=== PATIENT | male | born 1985 | race Caucasian/White ===

== ENCOUNTER 2016-09-21 12:40 | Emergency (ER) | payer SELFPAY ==
[2016-09-21 12:54] VITALS: BP 123/69; PULSE 62; RESP 18; TEMP 98.8; O2SAT 100
--- NOTE | 2016-09-21 15:12 | ED PDOC ---
HPI: Chest Pain Time Seen by Provider: 09/21/16 14:20 Chief Complaint (Nursing): Chest Pain Chief Complaint (Provider): Chest pain History Per: Patient History/Exam Limitations: no limitations Onset/Duration Of Symptoms: Intermittent Episodes Current Symptoms Are (Timing): Still Present Severity: Moderate Pain Scale Rating Of: 6 Quality: Sharp Associated Symptoms: denies: Nausea, Dyspnea, Diaphoresis, Syncope Modifying Factors: None Exacerbating Factors: None Alleviating Factors: None Additional Complaint(s): 31 yo male present to the ER c/o chest pain for 3 mos. Associated with numbness and tingling on L arm, no constant, getting worse, no associated with any particular event, also headache and lightheadness. Denies any shortness of breath, vomiting, chills, fever. Also describes a rash on groin area white, dry, with a healed lesion on shaft of penis,less than 3 mm, painless. Denies discharge, pain, dysuria, pruritus. Has a history of unprotected sexual relation days ago. Pt has been seen for chest pain 3-4 times before in the last year and half with negative prior ECG and negatives CXR, at this time no taking any medications. Pt appears anxious, focus on risk of STD. Otherwise the pt denies abdominal pain , diaphoresis, vision changes Past Medical History Reviewed: Historical Data, Nursing Documentation, Vital Signs Vital Signs: Last Vital Signs Temp 98.8 F 09/21/16 12:51 Pulse 62 09/21/16 12:51 Resp 18 09/21/16 12:51 BP 123/69 09/21/16 12:51 Pulse Ox 100 09/21/16 12:51 - Medical History PMH: Asthma, Back Problems (scoliosis), Pneumonia - Family History Family History: States: Unknown Family Hx - Immunization History Hx Tetanus Toxoid Vaccination: No Hx Influenza Vaccination: No Hx Pneumococcal Vaccination: No - Home Medications Home Medications: Ambulatory Orders Medication Instructions Recorded Ibuprofen 600 mg PO Q8 #30 tab 03/28/15 Albuterol HFA [Ventolin HFA 90 1 puff IH Q4 #1 puff 05/29/15 mcg/actuation (8 g)] Benzonatate [Tessalon Perles] 100 mg PO TID #30 sgl 05/29/15 Docusate [Colace] 100 mg PO TID #60 cap 05/29/15 Hydrocortisone 2.5% (Rectal) 30 applic [place] BID #1 tube 05/29/15 [Anusol-HC] Cyclobenzaprine [Cyclobenzaprine 10 mg PO BID #15 tab 05/01/16 HCl] Ibuprofen [Motrin Tab] 600 mg PO Q6 #30 tab 05/01/16 - Allergies Allergies/Adverse Reactions: Allergies Allergy/AdvReac Type Severity Reaction Status Date / Time turkey Allergy Intermediate ANGIOEDEMA Uncoded 01/29/15 23:15 GILL Risk Score for UA/NSTEMI - GILL Risk Score Age > 64: NO 3 or more CAD Risk Factors: NO Known CAD (Stenosis greater than 50%): NO Aspirin use in past 7 days: NO Severe Angina: NO EKG ST changes greater than 0.5mm: NO Positive Cardiac Marker: NO GILL Score: 0 Risk %: 5% Curb-65 Severity Score - CURB-65 Severity Score Confusion: No Bun >19mg/dl (>7mmol/L): No Respiratory Rate greater than/equal to 30: No Systolic BP <90 or Diastolic BP less than/equal 60mmHg: No Age >64: No Curb-65 Score: 0 Percentage 30-day mortality: 0.6% Wells Criteria for PE - Wells Criteria for Pulmonary Embolism Clinical Signs and Symptoms of DVT: No P.E is #1 Diagnosis, or Equally Likely: No Heart Rate >100: No Immobilization at least 3 days;Surgery previous 4 weeks: No Previous, objectively diagnosed PE or DVT: No Hemoptysis: No Malignancy w/treatment within 6 months, or palliative: No Total Score: 0 Review of Systems ROS Statement: Except As Marked, All Systems Reviewed And Found Negative (see HPI) Physical Exam - Reviewed Nursing Documentation Reviewed: Yes Vital Signs Reviewed: Yes - Physical Exam Appears: Positive for: Well, No Acute Distress Head Exam: Positive for: ATRAUMATIC, NORMAL INSPECTION Skin: Positive for: Normal Color Eye Exam: Positive for: Normal appearance, EOMI, PERRL Neck: Positive for: Normal Cardiovascular/Chest: Positive for: Regular Rate, Rhythm, Chest Non Tender. Negative for: Edema, Gallop, Murmur Respiratory: Positive for: Normal Breath Sounds. Negative for: Wheezing, Respiratory Distress Gastrointestinal/Abdominal: Positive for: Normal Exam Male Genital Exam: Positive for: normal genitalia, other (healed lesion less 3mm on shaft of penis painless). Negative for: erythema, urethral discharge Back: Positive for: Normal Inspection Extremity: Positive for: Normal ROM. 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
[2016-09-21] MEDS ORDERED: Potassium Chloride 20 mEq ER Tab PO ONE (19:26)
== END 2016-09-21 14:45 | disposition left against medical advice (07) ==
LOC: H.ER 12:40
DX: R07.89 Other chest pain (principal)

== ENCOUNTER 2016-09-21 15:30 | Emergency (ER) | payer SELFPAY ==
[2016-09-21 15:40] VITALS: TEMP 98; O2SAT 100
--- NOTE | 2016-09-21 17:11 | CARD ---
APPROVED REPORT EKG Measurement Heart [id number] <Conclusion> Normal sinus rhythm with sinus arrhythmia Possible Left atrial enlargement Borderline ECG
[2016-09-21 17:42] LABS: BASO # 0.1 K/uL (0.0-0.2); BASO % 0.8 % (0.0-2.0); EOS % 0.5 % (0.0-4.0); LYMPH # 2.1 K/uL (1.0-4.3); LYMPH % 23.4 % (20.0-40.0); MEAN CELL VOLUME 87.7 fl (80.0-94.0); MEAN CORPUSCULAR HGB CONC 34.2 g/dL (33.0-37.0); MEAN PLATELET VOLUME 8.5 fl (7.2-11.7); MONO # 0.6 K/uL (0.0-0.8); MONO % 6.8 % (0.0-10.0); NEUT # 6.3 K/uL (1.8-7.0); NEUT % 68.5 % (50.0-75.0); NRBC % 0.1 % (0.0-0.0); RBC 5.35 Mil/uL (4.40-5.90); RED CELL DISTRIBUTION WIDTH 13.2 % (11.5-14.5); WHITE BLOOD COUNT 9.2 K/uL (4.8-10.8)
[2016-09-21 18:03] LABS: BLOOD UREA NITROGEN 11 mg/dl (9-20); CALCIUM 9.5 mg/dL (8.4-10.2); GFR AFRICAN-AMERICAN > 60; GFR NON-AFRICAN AMERICAN > 60
[2016-09-21] MEDS ORDERED: Potassium Chloride 20 mEq ER Tab PO ONE (18:49)
--- NOTE | 2016-09-21 18:59 | ED PDOC ---
HPI: Chest Pain Time Seen by Provider: 09/21/16 17:00 Chief Complaint (Nursing): Chest Pain Chief Complaint (Provider): Chest Pain History Per: Patient History/Exam Limitations: no limitations Additional Complaint(s): 31 yo male present to the ER c/o chest pain for 3 mos. Associated with numbness and tingling on L arm, no constant, getting worse, no associated with any particular event, also headache and lightheadness. Denies any shortness of breath, vomiting, chills, fever. Also describes a rash on groin area white, dry, with a healed lesion on shaft of penis,less than 3 mm, painless. Denies discharge, pain, dysuria, pruritus. Has a history of unprotected sexual relation days ago. Pt has been seen for chest pain 3-4 times before in the last year and half with negative prior ECG and negatives CXR, at this time no taking any medications. Pt appears anxious, focus on risk of STD. Otherwise the pt denies abdominal pain , diaphoresis, vision changes Past Medical History Reviewed: Historical Data, Nursing Documentation, Vital Signs Vital Signs: Last Vital Signs Temp 98.0 F 09/21/16 15:37 Pulse 70 09/21/16 19:29 Resp 18 09/21/16 19:29 BP 118/74 09/21/16 19:29 Pulse Ox 100 09/21/16 19:08 - Medical History PMH: Asthma, Back Problems (scoliosis), Pneumonia - Surgical History Other surgeries: HEART SURGERY A CHILD - Family History Family History: States: Unknown Family Hx - Social History Current smoker - smoking cessation education provided: Yes (Current Some Days Smoker) Alcohol: Occasional Drugs: Cannabis - Immunization History Hx Tetanus Toxoid Vaccination: No Hx Influenza Vaccination: No Hx Pneumococcal Vaccination: No - Home Medications Home Medications: Ambulatory Orders Medication Instructions Recorded Ibuprofen 600 mg PO Q8 #30 tab 03/28/15 Albuterol HFA [Ventolin HFA 90 1 puff IH Q4 #1 puff 05/29/15 mcg/actuation (8 g)] Benzonatate [Tessalon Perles] 100 mg PO TID #30 sgl 05/29/15 Docusate [Colace] 100 mg PO TID #60 cap 05/29/15 Hydrocortisone 2.5% (Rectal) 30 applic [place] BID #1 tube 05/29/15 [Anusol-HC] Cyclobenzaprine [Cyclobenzaprine 10 mg PO BID #15 tab 05/01/16 HCl] Ibuprofen [Motrin Tab] 600 mg PO Q6 #30 tab 05/01/16 - Allergies Allergies/Adverse Reactions: Allergies Allergy/AdvReac Type Severity Reaction Status Date / Time turkey Allergy Intermediate ANGIOEDEMA Uncoded 01/29/15 23:15 Review of Systems ROS Statement: Except As Marked, All Systems Reviewed And Found Negative Constitutional: Negative for: Sweats Cardiovascular: Positive for: Chest Pain Gastrointestinal: Negative for: Nausea Genitourinary Male: Positive for: Other (Penile lesions). Negative for: Penile Discharge Neurological: Negative for: Other (Syncope) Physical Exam - Reviewed Nursing Documentation Reviewed: Yes Vital Signs Reviewed: Yes - Physical Exam Appears: Positive for: Non-toxic, No Acute Distress Head Exam: Positive for: ATRAUMATIC, NORMAL INSPECTION, NORMOCEPHALIC Skin: Positive for: Normal Color, Warm, Dry Eye Exam: Positive for: Normal appearance, EOMI, PERRL. Negative for: Conjunctival injection Neck: Positive for: Normal, Supple Cardiovascular/Chest: Positive for: Regular Rate, Rhythm. Negative for: Murmur Respiratory: Positive for: Normal Breath Sounds. Negative for: Accessory Muscle Use, Respiratory Distress Gastrointestinal/Abdominal: Positive for: Normal Exam, Soft. Negative for: Tenderness Male Genital Exam: Positive for: normal genitalia, lesions (Healed lesion less 3mm on shaft of penis painless). Negative for: erythema, urethral discharge Back: Positive for: Normal Inspection. Negative for: L CVA Tenderness, R CVA Tenderness Extremity: Positive for: Normal ROM. 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 Patient returned. Time: 18:49 --Potassium Chloride 20 meq PO Scribe Attestation: Documented by Renate Major, acting as a scribe for Timur Dietz MD. Provider Scribe Attestation: All medical record entries made by the Scribe were at my direction and personally dictated by me. I have reviewed the chart and agree that the record accurately reflects my personal performance of the history, physical exam, medical decision making, and the department course for this patient. I have also personally directed, reviewed, and agree with the discharge instructions and disposition. Disposition - Clinical Impression Clinical Impression: Chest pain, Penile lesion, Hypokalemia - Patient ED Disposition Is Patient to be Admitted: No Counseled Patient/Family Regarding: Studies Performed, Diagnosis, Need For Followup - Disposition Referrals: Delphine Torres MD [Medical Doctor] - Disposition: Routine/Home Disposition Time: 18:45 Condition: STABLE Additional Instructions: Supplement diet today and tomorrow with extra potassium- bananas and orange juice are rich in potassium. See urology for followup on penile lesion. RPR test is pending and will take 2 days to return, you will be called only if test is positive. Instructions: Chest Pain (ED)
[2016-09-21 19:29] VITALS: BP 118/74; PULSE 70; RESP 18
== END 2016-09-21 19:38 | disposition home or self-care (01) ==
LOC: H.ER 15:30
DX: R07.89 Other chest pain (principal)

== ENCOUNTER 2017-06-17 02:47 | Emergency (ER) | payer SELFPAY ==
[2017-06-17 03:18] VITALS: BP 129/85; PULSE 74; RESP 17; TEMP 97.6; O2SAT 99
[2017-06-17] MEDS ORDERED: cefTRIAXone (Rocephin) 250 mg Inj IM ONE (03:46)
--- NOTE | 2017-06-17 03:57 | ED PDOC ---
HPI: Chest Pain Time Seen by Provider: 06/17/17 03:14 Chief Complaint (Nursing): Chest Pain Additional Complaint(s): 31 YO M w/ multiple previous visits of chest pain and STD checkups presents to the ED with multiple vague complaints. He complains of chest pain x 3 weeks. Patient states he is undergoing a lot of stress in his life. Both of his parents have cancer and are very sick. - He also is concerned because he has unprotected sex and his past sexual partner had Gonorrhea and chlamydia and was recently treated for it. He is concerned that he may have contracted that from her . Has not been following up with his PMD and would like to get "worked up for everything. " PMH: Asthma Allergy: NKDA FH: Pancreatic cancer, brain cancer, DM, HTN SH: "Smokes 8-10 blunts a day" Occasional alcohol use - Past Medical History Reviewed: Historical Data, Nursing Documentation, Vital Signs Vital Signs: Last Vital Signs Temp 97.6 F 06/17/17 03:05 Pulse 74 06/17/17 03:05 Resp 17 06/17/17 03:05 BP 129/85 06/17/17 03:05 Pulse Ox 99 06/17/17 04:02 - Medical History PMH: Asthma, Back Problems (scoliosis), Pneumonia - Surgical History Surgical History: No Surg Hx - Family History Family History: States: Diabetes, Other Other Family History: pancreatic cancer and brain tumors - Social History Alcohol: Occasional Drugs: Cannabis - Immunization History Hx Tetanus Toxoid Vaccination: No Hx Influenza Vaccination: No Hx Pneumococcal Vaccination: No - Home Medications Home Medications: Ambulatory Orders Medication Instructions Recorded Ibuprofen 600 mg PO Q8 #30 tab 03/28/15 Albuterol HFA [Ventolin HFA 90 1 puff IH Q4 #1 puff 05/29/15 mcg/actuation (8 g)] Benzonatate [Tessalon Perles] 100 mg PO TID #30 sgl 05/29/15 Docusate [Colace] 100 mg PO TID #60 cap 05/29/15 Hydrocortisone 2.5% (Rectal) 30 applic [place] BID #1 tube 05/29/15 [Anusol-HC] Cyclobenzaprine [Cyclobenzaprine 10 mg PO BID #15 tab 05/01/16 HCl] Ibuprofen [Motrin Tab] 600 mg PO Q6 #30 tab 05/01/16 - Allergies Allergies/Adverse Reactions: Allergies Allergy/AdvReac Type Severity Reaction Status Date / Time turkey Allergy Intermediate ANGIOEDEMA Uncoded 01/29/15 23:15 GILL Risk Score for UA/NSTEMI - GILL Risk Score Age > 64: NO 3 or more CAD Risk Factors: NO Known CAD (Stenosis greater than 50%): NO Aspirin use in past 7 days: NO EKG ST changes greater than 0.5mm: NO GILL Score: 0 Risk %: 5% Wells Criteria for PE - Wells Criteria for Pulmonary Embolism Clinical Signs and Symptoms of DVT: No P.E is #1 Diagnosis, or Equally Likely: No Heart Rate >100: No Immobilization at least 3 days;Surgery previous 4 weeks: No Previous, objectively diagnosed PE or DVT: No Hemoptysis: No Malignancy w/treatment within 6 months, or palliative: No Total Score: 0 Review of Systems ROS Statement: Except As Marked, All Systems Reviewed And Found Negative Physical Exam - Reviewed Vital Signs Reviewed: Yes - Physical Exam Appears: Positive for: No Acute Distress (Anxious) Head Exam: Positive for: NORMAL INSPECTION Skin: Positive for: Normal Color Neck: Positive for: Normal Cardiovascular/Chest: Positive for: Regular Rate, Rhythm Respiratory: Positive for: Normal Breath Sounds. Negative for: Crackles, Rales , Wheezing Gastrointestinal/Abdominal: Positive for: Normal Exam, Soft Back: Negative for: L CVA Tenderness, R CVA Tenderness Neurologic/Psych: Positive for: Alert, waste elimination II-XII, Oriented, Motor/Sensory Deficits - ECG ECG: Positive for: Interpreted By Me, Viewed By Me ECG Rhythm: Positive for: Normal QRS, Normal ST Segment, Sinus Rhythm O2 Sat by Pulse Oximetry: 99 Medical Decision Making Medical Decision Making: EKG: No ischemic changes noted. Patient has had multiple visits for ruling out ACS and have been negative. Currently symptoms have subsided. PAtient is concerned with exposure to gonorrhea and chlamydia - 1000mg of Azithromycin and 250mg of Ceftriaxone Disposition - Clinical Impression Clinical Impression: Chest pain, Gonorrhea contact - Disposition Referrals: [facility] [Outside] Disposition: Routine/Home Disposition Time: 04:57 Condition: GOOD Instructions: Chest Pain, Chest Pain That Is Not Caused by the Heart (DC) Forms: [employer] (Swiss)
[2017-06-17] MEDS ORDERED: cefTRIAXone (Rocephin) 250 mg Inj ONE (04:02)
== END 2017-06-17 05:24 | disposition home or self-care (01) ==
LOC: H.ER 02:47
DX: R07.9 Chest pain, unspecified (principal); Z20.2 Contact with and (suspected) exposure to infections with a predominantly sexual mode of transmission; J45.909 Unspecified asthma, uncomplicated; M41.9 Scoliosis, unspecified; Z83.3 Family history of diabetes mellitus; Z87.39 Personal history of other diseases of the musculoskeletal system and connective tissue
CPT/HCPCS: 96372; 99283; J0696

== ENCOUNTER 2017-11-25 21:50 | Emergency (ER) | payer SELFPAY ==
[2017-11-25 22:00] VITALS: BP 117/71; PULSE 86; RESP 19; TEMP 98.3; O2SAT 97
--- NOTE | 2017-11-25 22:35 | ED PDOC ---
HPI: Influenza Time Seen by Provider: 11/25/17 22:01 Chief Complaint: Cough, Cold, Congestion History Per: Patient Additional complaint(s):: Pt. states for the past 2 months he's had a non-productive cough associated with R sided upper back pain. Reports upper back pain is worse with movement of R shoulder. Also reports for the past 2 years he's had intermittent chills. Denies chest pain, SOB, hemoptysis, hx of DVT or PE, fever, sick contacts, recent travel. Past Medical History Vital Signs: Last Vital Signs Temp 98.3 F 11/25/17 21:54 Pulse 86 11/25/17 21:54 Resp 19 11/25/17 21:54 BP 117/71 11/25/17 21:54 Pulse Ox 97 11/25/17 21:54 - Medical History PMH: Asthma, Back Problems (scoliosis), Pneumonia - Surgical History Surgical History: No Surg Hx - Family History Family History: States: Diabetes - Immunization History Hx Tetanus Toxoid Vaccination: No Hx Influenza Vaccination: No Hx Pneumococcal Vaccination: No - Home Medications Home Medications: Ambulatory Orders Medication Instructions Recorded Ibuprofen 600 mg PO Q8 #30 tab 03/28/15 Albuterol HFA [Ventolin HFA 90 1 puff IH Q4 #1 puff 05/29/15 mcg/actuation (8 g)] Benzonatate [Tessalon Perles] 100 mg PO TID #30 sgl 05/29/15 Docusate [Colace] 100 mg PO TID #60 cap 05/29/15 Hydrocortisone 2.5% (Rectal) 30 applic [place] BID #1 tube 05/29/15 [Anusol-HC] Cyclobenzaprine [Cyclobenzaprine 10 mg PO BID #15 tab 05/01/16 HCl] Ibuprofen [Motrin Tab] 600 mg PO Q6 #30 tab 05/01/16 Azithromycin [Zithromax] 250 mg PO DAILY #6 tab 11/25/17 Naproxen [Naprosyn] 500 mg PO BID PRN #10 tab 11/25/17 Promethazine DM [Phenergan DM 5 - 10 ml PO Q8 PRN #120 ml 11/25/17 Syrup] - Allergies Allergies/Adverse Reactions: Allergies Allergy/AdvReac Type Severity Reaction Status Date / Time turkey Allergy Intermediate ANGIOEDEMA Uncoded 11/25/17 22:00 Review of Systems ROS Statement: Except As Marked, All Systems Reviewed And Found Negative Respiratory: Positive for: Cough Musculoskeletal: Positive for: Shoulder Pain, Back Pain Physical Exam - Physical Exam Appears: Positive for: Well, Non-toxic, No Acute Distress Skin: Positive for: Normal Color, Warm. Negative for: Rash Eye Exam: Positive for: Normal appearance ENT: Positive for: Normal ENT Inspection. Negative for: Pharyngeal Erythema, Tonsillar Swelling Cardiovascular/Chest: Positive for: Regular Rate, Rhythm Respiratory: Positive for: Normal Breath Sounds. Negative for: Accessory Muscle Use, Respiratory Distress Pulses-Radial (L): 2+ Pulses-Radial (R): 2+ Back: Positive for: Normal Inspection. Negative for: L CVA Tenderness, R CVA Tenderness Extremity: Positive for: Normal ROM (FROM actively of R shoulder) Neurologic/Psych: Positive for: Alert, Oriented (x3) - ECG O2 Sat by Pulse Oximetry: 97 - Radiology X-Ray: Interpreted by Me (CXR) X-Ray Interpretation: No Acute Disease Disposition - Clinical Impression Clinical Impression: Back pain, Cough - Patient ED Disposition Is Patient to be Admitted: No - Disposition Referrals: [facility] [Outside] [facility] [Outside] Disposition: Routine/Home Disposition Time: 22:37 Condition: STABLE Additional Instructions: ROVERTO BANDA, thank you for letting us take care of you today. Your provider was Rehana Reynoso MD and you were treated for COUGH/SORE THROAT. The emergency medical care you received today was directed at your acute symptoms. If you were prescribed any medication, please fill it and take as directed. It may take several days for your symptoms to resolve. Return to the Emergency Department if your symptoms worsen, do not improve, or if you have any other problems. Please contact your doctor or call one of the physicians/clinics you have been referred to that are listed on the Patient Visit Information form that is included in your discharge packet. Bring any paperwork you were given at discharge with you along with any medications you are taking to your follow up visit. Our treatment cannot replace ongoing medical care by a primary care provider outside of the emergency department. Thank you for allowing the [facility] team to be part of your care today. If you had an X-Ray or CT scan: A Radiologist will review the ED reading if any change in treatment is needed we will contact you. If you had a blood, urine, or wound culture: It will take several days for the results, if any change in treatment is needed we will contact you. If you had an STI test: It will take 48 hours for the results. Please call after 1 week if you have not heard back. Prescriptions: Azithromycin [Zithromax] 250 mg PO DAILY #6 tab Naproxen [Naprosyn] 500 mg PO BID PRN #10 tab PRN Reason: Pain Promethazine DM [Phenergan DM Syrup] 5 - 10 ml PO Q8 PRN #120 ml PRN Reason: Cough Instructions: Cough in Adults, Upper Back Pain Forms: [employer] (Icelandic) Print Language: SINHALA
--- NOTE | 2017-11-26 09:29 | RAD ---
Date of service: 11/25/2017 HISTORY: cough COMPARISON: Comparison chest 05/01/2016 TECHNIQUE: Chest PA and lateral FINDINGS: LUNGS: No active pulmonary disease. PLEURA: No significant pleural effusion identified. No pneumothorax apparent. CARDIOVASCULAR: Normal. OSSEOUS STRUCTURES: Mild to moderate scoliotic deformity centered in the lower thoracic region. VISUALIZED UPPER ABDOMEN: Normal. OTHER FINDINGS: None. IMPRESSION: No active disease.
== END 2017-11-25 23:15 | disposition home or self-care (01) ==
LOC: H.ER 21:50
DX: R05 Cough (principal); M54.9 Dorsalgia, unspecified